=== PATIENT | female | born 1950 | race Caucasian/White ===

== ENCOUNTER → 2017-02-20 | Day surgery (SDC) | payer MEDICARE, OTHER ==
--- NOTE | 2017-02-19 13:23 | PCM.HPANE ---
Patient Data Surgeon Admitting Provider: Attending Provider:Jerzy Fuentes MD Primary Care Physician:Henry Jose MD Other Provider:Telma Freemaningham Anesthesia Reason for Visit Fam Hx Of Colon Cancer Ht/WT & BMI Body Mass Index Allergies Coded Allergies: TAPE (Verified Allergy, Unknown, 01/13/14) carbamazepine (Verified Allergy, Unknown, 01/13/14) clotrimazole (Verified Allergy, Unknown, 01/13/14) estradiol (Verified Allergy, Unknown, 01/13/14) vaginal estrogens, conjugated (Verified Allergy, Unknown, 01/13/14) hydrocodone bitartrate (Verified Allergy, Unknown, 01/13/14) hydromorphone (Verified Allergy, Unknown, 01/13/14) lisinopril (Verified Allergy, Unknown, 01/13/14) morphine (Verified Allergy, Unknown, 01/13/14) phenytoin sodium (Verified Allergy, Unknown, 01/13/14) tramadol (Verified Allergy, Unknown, 01/13/14) Uncoded Allergies: tegaderm (Allergy, Unknown, 01/13/14) Past Anesthesia History Anesthesia History: Denies:: Abnormal Airway, Anesthesia Reactions, Difficult Intubation, Fam Anesthesia Reaction, Fam Malignant Hypertherm, Malignant Hyperthermia Medications Reported Medications Albiglutide (Tanzeum)50 Mg/0.5 Ml Pen.jfzcho07 Mg SQ 02/19/17 Tacrolimus Anhydrous (Tacrolimus)0.5 Gm Powder1 Gm MC BID 02/19/17 Levothyroxine (Synthroid)150 Mcg Xbyugh284 Mcg PO DAILY Ref 0 02/19/17 Albuterol HFA (Proair HFA)8.5 Gm Hfa.aer.ad2 Puffs INHALATION Q4H #1 INHALER 02/19/17 Cmb#95/Iron/FA/Dha ( + Dha Combo Pack)1 Each Combo..pkg1 Each PO DAILY 02/19/17 Prednisone (PredniSONE)5 Mg Tab5 Mg PO DAILY Ref 0 02/19/17 Pravastatin 40 Mg Qvprgj85 Mg PO DAILY Ref 0 02/19/17 Potassium Chloride ER 20 Meq Tablet.er20 Meq PO BID Ref 0 TAKE WITH FOOD 02/19/17 Omeprazole 20 Mg Capsule.dr20 Mg PO BID Ref 0 02/19/17 Insulin Glargine (Lantus U100 Insulin Vial)100 Unit/Ml Vial1 Unit SUBQ HS #1 VIAL Ref 0 02/19/17 Insulin Aspart (NovoLOG U100 Insulin Vial)100 U/Ml U1 Unit SUBQ PER INSTRUCTIONS #1 VIAL Ref 0 02/19/17 Nitroglycerin SL 0.4 Mg Tab.subl0.4 Mg SL 02/19/17 Metoprolol Tartrate 50 Mg Mprknt44 Mg PO BID 30 Days Ref 0 02/19/17 Furosemide 40 Mg Qauhkr94 Mg PO DAILY 02/19/17 Fluticasone Propionate (Fluticasone Propionate Nasal)16 Gm [place].susp2 [place] NS BID #16 GM Ref 0 02/19/17 Fluticasone Propionate (Flonase Allergy Relief)50 Mcg/Actuation [place].susp1 [place] NS 02/19/17 Cranberry Extract (Cranberry)500 Mg Edxbgs456 Mg PO HS 02/19/17 Losartan Potassium (Cozaar)50 Mg Nolshr49 Mg PO DAILY 02/19/17 Aspirin 81 Mg Ctaizx93 Mg PO DAILY Ref 0 02/19/17 LA/Lactobac Saliv/Bb/S.thermop (Acidophilus 175 mg Capsule)175 Mg Fxmexam022 Mg PO 02/19/17 Discontinued Reported Medications Tacrolimus Anhyd-Expunged Drug, Do Not Renew! (Tacrolimus-Expunged Drug, Do Not Renew!)1 Mg Capsule0.5 Mg PO BID 03/18/12 Levothyroxine-Expunged Drug, Do Not Renew! (Synthroid-Expunged Drug, Do Not Renew!)125 Mcg Znewpg888 Mcg PO DAILY 03/18/12 [Replens Gel] No Conflict Check 03/18/12 [] No Conflict Check 03/18/12 PredniSONE-Expunged Drug, Do Not Renew! 5 Mg Tab5 Mg PO DAILY 03/18/12 Omeprazole-Expunged Drug, Do Not Renew! 20 Mg Tablet.dr20 Mg PO BID 03/18/12 Nitroglycerin-Expunged Drug, Do Not Renew! (Nitroglycerin SL-Expunged Drug, Do Not Renew!)0.4 Mg Tab.subl0.4 Mg SL PRN 03/18/12 Metoprolol Tart-Expunged Drug, Do Not Renew! 50 Mg Eqholt89 Mg PO BID 03/18/12 Losartan-Expunged Drug, Do Not Renew! 50 Mg Wgxftj14 Mg PO DAILY 03/18/12 Insulin Glargine-Expunged Drug, Do Not Renew! (Lantus-Expunged Drug, Do Not Renew!)100 U/Ml Nlfdhxeiu115 U Sq 03/18/12 Insulin Lispro-Expunged Drug, Do Not Renew! (Humalog-Expunged Drug, Do Not Renew !)100 U/Ml Vial Sq SLIDING SCALE 03/18/12 glipiZIDE-Expunged Drug, Do Not Renew! 5 Mg Tablet5 Mg PO BID 03/18/12 Furosemide-Expunged Drug, Do Not Renew! (Lasix-Expunged Drug, Do Not Renew!)40 Mg Quwfhy48 Mg PO DAILY 03/18/12 Docusate Sod-Expunged Drug, Do Not Renew! 100 Mg Owtubcz070 Mg PO PRN 03/18/12 [Cranberry Extract] No Conflict Ceoqv012 Mg PO HS 03/18/12 Aspirin-Expunged Drug, Do Not Renew! (Aspirin EC-Expunged Drug, Do Not Renew!) 81 Mg Bcrleg76 Mg PO DAILY 03/18/12 Lacto Acid-Expunged Drug, Do Not Renew! (Acidophilus-Expunged Drug, Do Not Renew !)1 Each Capsule1 Each PO DAILY 03/18/12 History History of ENT Problems?: No HEENT History: Denies:: Abnormal Airway Cataracts Difficult Intubation Dysphagia Glaucoma Hearing Problem Sinus Problem TMJ Denture Type: None Teeth Condition: Within Normal Limits Hx of Heart Problems?: No Cardiovascular History: Denies:: AICD Abdominal Aortic Aneurism Atrial Fibrillation Cardiac Surgery Chest Pain Congestive Heart Failure Coronary Artery Disease Edema Heart Murmur Hypertension Irregular Heartbeat Pacemaker Peripheral Vascular Rheumatic Fever Thrombophlebitis Valvular Heart Disease Hx of Respiratory Problem?: No Respiratory History: Denies:: Asthma COPD Chest Surgery Cough Dyspnea Emphysema Hemoptysis Oxygen Administration Pneumonia Pulmonary Embolism Tuberculosis Use of C-PAP Machine Use of Inhalers / NEBS Hx Neurologic Problems?: No Neurological History: Denies:: Alzheimer's Disease CVA Dementia Dizziness Headaches Multiple Sclerosis Parkinson's Disease Peripheral Neuropathy Seizures TIA Hx of GI Problems?: No Gastrointestinal History: Denies:: Cirrhosis Diverticulitis Gall Bladder Disease Gastroesphageal Reflux Gastrointestinal Bleeding Heartburn Hepatitis Hiatal Hernia Liver Disease Rectal Bleeding Hx of Problems?: No Genitourinary History: Denies:: HX of Hemodialysis Kidney Stones Urinary Tract Infection Female Hx: Denies:: Currently Endometriosis Pelvic Inflammatory Problems with Breasts? Skin History: Denies:: History Skin Disorders? Pressure Ulcers Hx Musculoskeletal Problems?: No Musculoskeletal History: Denies:: Back Injury Degenerative Joint Fibromyalgia Joint Replacement Musculoskeletal Trauma Myasthenia Gravis Osteoarthritis Rheumatoid Arthritis Systemic Lupus Hx of Psycho/Social Problems?: No Psycho Social History: Denies:: Anxiety Bipolar Disorder Hx Depression Suicide Attempt Hx Surgeries?: No Hx Any Other Health Problems?: No Other History: Denies:: Cancer Endocrine Disease Hospitalization Thyroid Disease History Blood Transfusions: Positive for:: Blood Transfusions Denies:: Accept Blood Products? Blood Transfuse Reaction Hx Diabetes: No Hx Alcohol Use: NoHx Substance Use: No Stop/Bang Risk Assessment Category Category 1A: Patient has history of documented sleep apnea, and HAS NOT received any narcotic, sedative or anesthesia administration during this stay. Category 1B: Patient has history of documented sleep apnea, and HAS received any narcotic , sedative or anesthesia administration during this stay Category 2: Patient has SUSPECTED Obstructive Sleep Apnea, and HAS received any narcotic , sedative or anesthesia administration during this stay. Category 3: Patient has SUSPECTED Obstructive Sleep Apnea and HAS NOT received narcotic, sedative or anesthesia administration during this stay. Category 4: Outpatient in Procedural Areas with known sleep apnea or who screen positive for High Risk via the STOP/BANG questionnaire. Exam Exam General Appearance: Alert, Oriented X3, Cooperative HEENT/AIRWAY: MP 2, Neck Movement (from), Mouth Opening (wnl) Lungs: Clear to Auscultation Heart: Exam Unremarkable Plan Impression Patient chart reviewed, patient interviewed and anesthestic plan with risks, benefits, and alternatives discussed, and informed consent obtained. ASA Physical Status: ASA2 Mod Systemic Disease Anesthetic Plan: GA Bene/Risks/Altern/Consents: Yes HP Complete Prior to Induction: Yes Cr Mccormack MD Feb 19, 2017 13:23
[~2017-02-20] VITALS: Ht 165.1 cm; Wt 87.0 kg
[~2017-02-20] MED LIST: ALBI50PE SQ; ALBU8.5H2 INHALATION; ASPI-973 PO; CRAN500T2 PO; FLUT16SP NS; FLUT9.9S NS; FURO40TA4 PO; INSU100C8 SUBQ; INSU100V7 SUBQ; LOSA50TA3 PO; METO50TA3 PO; NITR0.4T6 SL; OMEP20CA11 PO; POTA-62 PO; PRAV40TA PO; PRD5T PO; PREN1COM11 PO; Propofol 10,000 mCg/mL 20 mL Inj ONE; SYN.15T2 PO; TACR0.5P MC; [UNRECOGNIZED DRUG - OTHER] PO
[2017-02-20 11:35] VITALS: BP 136/65; PULSE 65; RESP 18; O2SAT 98
[2017-02-20] MEDS: Lactated Ringer's 1,000 ML IV ONE ×2 (12:32→12:43)
[2017-02-20 12:49] VITALS: BP 112/49; PULSE 69; RESP 17; O2SAT 97
--- NOTE | 2017-02-20 12:49 | PCM.ENDCOL ---
Colonoscopy Date of Service: Feb 20, 2017 Physician Jerzy Fuentes MD Pre Procedure Diagnosis: Screening Post Procedure Dx & Findings: Polyp and hemorrhoids diverticulosis Procedure Colonoscopy PROCEDURE IN DETAIL: Prep adequate Withdrawal time 10 minutes After unremarkable rectal examination the Olympus video colonoscope was inserted patient's anal canal and was advanced to cecum. Landmarks were identified including the ileocecal valve and appendiceal orifice. Scope was withdrawn systematically. Visualized colonic mucosa showed healthy shiny mucosa with normal healthy-appearing vasculature. In the cecum, there was a 3 mm polyp which was removed completely using cold snare. In the sigmoid colon there are a few small diverticuli. In the rectum retroflexion was done which showed hemorrhoids. Anal canal was inspected carefully on the way out and hemorrhoids noted. Impression Polyp 1 status post removal Diverticuli Hemorrhoids Recommendation Repeat colonoscopy 5 years Diverticular diet Presedation Assessment Risks and Benefits Informed consent was obtained from the patient after all risks and benefits including but not limited to drug reaction, infection, pain, bleeding, perforation, as well as alternatives were discussed. Patient monitoring Continuous pulse oximetry, cardiac monitoring, blood pressure monitoring, IV access, and oxygen at 2L per nasal cannula. Complications There were no periprocedural complications identified. Post Procedure Plan Post Procedure Recommendations 1. Restrict activities today. 2. Resume normal activities in the morning. 3. Resume medications. 4. Patient informed of normal post procedure side effects as bloating, drowsiness, blood streaking in the stool. 5. average risk CRCS. If colon polyps come back as: -Hyperplastic- can repeat colonoscopy in 10 years -Tubular adenoma- repeat colonoscopy in 5 years -Tubulovillous/villous adenoma- repeat colonoscopy in 3 years -If any dysplasia- return to clinic as soon as possible 6. Please don't hesitate to call me with any questions. Jerzy Fuentes MD Feb 20, 2017 12:49
--- NOTE | 2017-02-20 12:56 | PCM.ANEP1 ---
Post Anesthesia PACU Phase 1 Assessment Vital Signs Vital Signs Date Time Temp Pulse Resp B/P Pulse Ox O2 Delivery O2 Flow Rate FiO2 02/20/17 12:49 69 17 112/49 97 Room Air 02/20/17 11:35 37.2 65 18 136/65 98 Room Air Anesthetic Administered: GA Level of Alertness: Awake, talking ARAGON's with Equal Strength: Yes Pain: No Nausea or Vomiting: No CV Function & Hydration Stable: Yes Airway Device: Oxygen Delivery: Room Air Lungs: Normal Air Movement PACU Phase 2 Assessment Complications: No Follow up Care: No Patient Instructions Provided: N/A Cr Mccormack MD Feb 20, 2017 12:56
[2017-02-20 13:04] VITALS: BP 121/60; PULSE 72; RESP 16; O2SAT 97
--- NOTE | 2017-02-26 09:31 | PATH ---
SURGICAL PATHOLOGY Attending Physician:Jerzy Fuentes M.D. CASE STATUS: Signed Out PATIENT NAME: ELLIOT MOREIRA PID: [id number] : 1950 DATE COLLECTED:02/20/2017 20:42 SPECIMEN: Colon, Polyp CLINICAL HISTORY: 1). CECAL POLYP X1 FINAL DIAGNOSIS: 1.CECAL POLYP: TUBULAR ADENOMA. ICD10 D12.0 GROSS DESCRIPTION: Received one formalin-filled container, labeled with the patient' s name and labeled "cecal polyp x1". The specimen consists of two 0.2-0.3 cm portions of tissue, entirely submitted in one cassette. (DC:[facility] [id number] [id number]) MICRO DESCRIPTION: See diagnosis. ICD-9 CODES: CPT CODES: 1: 40509 Electronically Signed Out Crystal Kim MD [facility] [address], [place] [address] Technical component performed at [facility], [facility] [address], [place], [address]
== END | disposition home or self-care (01) ==
LOC: END 00:29
PROVIDERS: ATTEND Internal Medicine
DX: Z12.11 Encounter for screening for malignant neoplasm of colon (principal); Z80.0 Family history of malignant neoplasm of digestive organs; D12.0 Benign neoplasm of cecum; K57.30 Diverticulosis of large intestine without perforation or abscess without bleeding; K64.9 Unspecified hemorrhoids; K21.9 Gastro-esophageal reflux disease without esophagitis; G47.33 Obstructive sleep apnea (adult) (pediatric); I12.0 Hypertensive chronic kidney disease with stage 5 chronic kidney disease or end stage renal disease; I25.10 Atherosclerotic heart disease of native coronary artery without angina pectoris; E03.9 Hypothyroidism, unspecified; E78.5 Hyperlipidemia, unspecified; E11.22 Type 2 diabetes mellitus with diabetic chronic kidney disease; D63.1 Anemia in chronic kidney disease; N18.5 Chronic kidney disease, stage 5; M54.16 Radiculopathy, lumbar region; F32.9 Major depressive disorder, single episode, unspecified; Z94.0 Kidney transplant status; Z79.82 Long term (current) use of aspirin; Z79.4 Long term (current) use of insulin
CPT/HCPCS: 45385; J7120